=== PATIENT | male | born 1970 | race Caucasian/White ===

== ENCOUNTER 2018-01-18 05:55 | Day surgery (SDC) | payer OTHER ==
--- NOTE | 2018-01-15 14:29 | GHP ---
DATE OF ADMISSION: 01/18/2018 DATE OF SURGERY: 01/18/2018 CHIEF COMPLAINT: Umbilical hernia. HISTORY OF PRESENT ILLNESS: The patient is a 47-year-old male who presents for surgical evaluation o f an umbilical hernia. He reports that he first noticed the hernia a few months ago. He is unsure o f any precipitating event, but states that he has recently started running after dinner and this has seemed to make it worse. He reports that it typically does not bother him, but when pressed, it is s omewhat tender. He denies any GI symptoms, including diarrhea, constipation, nausea, and vomiting. He denies any hernias in his inguinal region. Of note, he has a history of second-degree type 1 AV b lock. PAST MEDICAL HISTORY: Wenckebach heart block, back pain, concussion, migraine with aura. PAST SURGICAL HISTORY: Shoulder surgery. MEDICATIONS: Fish oil, multivitamin, turmeric, vitamin D3. ALLERGIES: No known drug allergies. FAMILY HISTORY: Diabetes type 1, heart disease, thyroid disease, hypertension. SOCIAL HISTORY: He is a nonsmoker. He is a daily alcohol drinker. PHYSICAL EXAM: GENERAL: This is a well-appearing 47-year-old male in no acute distress. HEENT: Pu pils are equal and round. No scleral icterus. Head: Normocephalic, atraumatic. No gross hearing d eficit. Mucous membranes are moist. CARDIAC: Regular rate and rhythm, no clicks, murmurs, or rubs. RESPIRATORY: Clear to auscultation bilaterally. No increased work of breathing. ABDOMEN: Soft, nontender. There is a small reducible bulge in the 11 o'clock position of the umbilicus. : There is a weakness in the right groin, possibly consistent with an early inguinal hernia. SKIN: Warm an d dry. No rashes. EXTREMITIES: Moves all extremities equally. No peripheral edema. NEUROLOGIC: Awake, alert, and oriented. PSYCHIATRIC: Appropriate mood and affect. IMPRESSION/PLAN: This is a 47-year-old male with an umbilical hernia that is beginning to become bot hersome. Given his history of second-degree type 1 atrioventricular heart block, he has seen his car diologist and gained preop cardiac clearance. All risks and options of surgery have been discussed. Risks of surgery include, but are not limited to infection, bleeding, recurrence, heart attack, and . Patient understands and wishes to proceed. We will proceed with open umbilical hernia repair . /[id number]/MODL
--- NOTE | 2018-01-17 19:25 | PDANEPAE ---
ANE History of Present Illness 47 yo male with umbilical hernia ANE Past Medical History - Cardiovascular History Hx Hypertension: No Hx Arrhythmias: Yes Hx Chest Pain: No Hx Coronary Artery / Peripheral Vascular Disease: No Hx CHF / Valvular Disease: No Hx Palpitations: No Cardiovascular History Comment: AV BLOCK - Pulmonary History Hx COPD: No Hx Asthma/Reactive Airway Disease: No Hx Recent Upper Respiratory Infection: No Hx Oxygen in Use at Home: No Hx Sleep Apnea: No Sleep Apnea Screening Result - Last Documented: Negative - Neurologic History Hx Cerebrovascular Accident: No Hx Seizures: No Hx Dementia: No Neurologic History Comment: OCULAR MIGRAINES - NONE RECENT - Endocrine History Hx Diabetes: No - Renal History Hx Renal Disorders: No - Liver History Hx Hepatic Disorders: No - Neurological & Psychiatric Hx Hx Neurological and Psychiatric Disorders: No - Cancer History Hx Cancer: No - Congenital Disorder History Hx Congenital Disorders: No - GI History Hx Gastrointestinal Disorders: No - Other Health History Other Health History: NEG - Chronic Pain History Chronic Pain: No - Surgical History Prior Surgeries: SHOULDER L - REPAIR DISLOCATION. WISDOM TEETH ANE Review of Systems Review of Systems: - Exercise capacity METS (RN): 5 METS ANE Patient History - Allergies Allergies/Adverse Reactions: No Known Allergies Allergy (Unverified 07/05/13 09:40) - Home Medications Home Medications: Herbals/Supplements -Info Only 01/17/18 [Last Taken Unknown] Ibuprofen 01/17/18 [Last Taken Unknown] - Anes Hx Anes Hx: no prior problems - Smoking Hx Smoking Status: Never smoked - Family Anes Hx Family Anes Hx: none Family Hx Anesthesia Complications: NEG ANE Labs/Vital Signs - Vital Signs Height: 180.34 cm Weight: 88.451 kg ANE Physical Exam - Airway Neck exam: FROM Mallampati Score: Class 2 Mouth exam: normal dental/mouth exam - Pulmonary Pulmonary: no respiratory distress, clear to auscultation - Cardiovascular Cardiovascular: regular rate and rhythym, no murmur, rub, or gallop - ASA Status ASA Status: I ANE Anesthesia Plan Anesthesia Plan: general endotracheal anesthesia, GA w LMA
[~2018-01-18 05:55] MED LIST: LIDOCAINE 1% 2 ML INJ ID PRN; LR 1,000 ML IV ONE; ceFAZolin 2 GM/DEXTROSE 100 ML IV ONE
[2018-01-18] MEDS ORDERED: BUPIVACAINE 0.5% 30 ML SDV ONE (06:16)
[2018-01-18] MEDS ORDERED: fentaNYL 100 MCG/2 ML INJ ONE (06:52)
[2018-01-18] MEDS ORDERED: PROPOFOL 200 MG/20 ML VIAL ONE (06:52)
[2018-01-18] MEDS ORDERED: ONDANSETRON 4 MG/2 ML VIAL ONE (06:53)
[2018-01-18] MEDS ORDERED: LIDOCAINE 2% 2 ML INJ ONE (06:53)
[2018-01-18] MEDS ORDERED: KETOROLAC 30 MG/1 ML SDV ONE (06:53)
[2018-01-18] MEDS ORDERED: DEXAMETHASONE 4 MG/ML VIAL ONE (06:53)
[2018-01-18] MEDS ORDERED: MIDAZOLAM 2 MG/2 ML VIAL ONE (06:54)
--- NOTE | 2018-01-18 07:12 | PDHPUP ---
History & Physical Update H&P update statement: This history and physical update is based on an assessment of the patient which was completed after admission or registration (within 24 hours), but prior to the surgery/procedure. H&P update: H&P reviewed & patient examined, no change in patient's condition since H&P completed
[2018-01-18] MEDS ORDERED: PROMETHAZINE HCL 25 MG/ML INJ IVP PRN (07:44)
[2018-01-18] MEDS ORDERED: NALOXONE HCL 0.4 MG/ML INJ IVP PRN (07:44)
[2018-01-18] MEDS ORDERED: fentaNYL 100 MCG/2 ML INJ IVP PRN (07:44)
[2018-01-18] MEDS ORDERED: HYDROmorphONE/DILAUDID 2 MG/ML INJ IVP PRN (07:44)
[2018-01-18] MEDS ORDERED: METOCLOPRAMIDE 10 MG/2 ML VIAL IVP PRN (07:44)
--- NOTE | 2018-01-18 07:45 | POSTANESTH ---
Post Anesthetic Evaluation Cardiovascular Status: Normal, Stable Respiratory Status: Normal, Stable Level of Consciousness/Mental Status: Can Participate in Eval Pain Control: Adequate, Prn Tx Ordered Nausea/Vomiting Control: Adequate, Prn Tx Ordered Complications Possibly Related to Anesthesia: None Noted
[2018-01-18] MEDS ORDERED: SUGAMMADEX SODIUM 200 MG/2 ML VIAL IVP ONE (07:58)
--- NOTE | 2018-01-18 08:22 | POSTOPPROG ---
Post Op Note Date of Operation: 01/18/18 Surgeon: Volodymyr Osman Body Team Member: Cam Anesthesiologist: Willie Rivas Anesthesia: GET(General Endotracheal) Pre-op Diagnosis: Umbilical hernia Post-op Diagnosis: same Indication: pain Procedure: open umbilical hernia repair with mesh Inf/Abcess present in the surg proc area at time of surgery?: No Depth: Deep Incisional (Fascial) EBL: Minimal Specimen(s): Umbilical hernia sac
[2018-01-18] MEDS ORDERED: oxyCODONE IR 5 MG TAB PO PRN (09:14)
[2018-01-18 09:41] VITALS: BP 136/74
--- NOTE | 2018-01-19 04:34 | GOP ---
DATE OF OPERATION: 01/18/2018 SURGEON: Volodymyr Osman MD BOTTLE MACHINE OPERATOR: Kim Levy NP ANESTHESIOLOGIST: Dr. Stephens. PREOPERATIVE DIAGNOSIS: Symptomatic supraumbilical hernia. POSTOPERATIVE DIAGNOSIS: Symptomatic supraumbilical hernia. PROCEDURE PERFORMED: Repair of supraumbilical hernia with mesh. FINDINGS: The patient was found to have a 2 cm supraumbilical fascial defect. DESCRIPTION OF PROCEDURE: The patient was taken to the operating room where he received a satisfacto ry general endotracheal anesthesia by Dr. Sean Stephens. The patient was placed in supine position, preppe d and draped in usual sterile fashion. Incision was made above the umbilicus. Dissection was danielle d down through subcutaneous tissue. The hernia sac was dissected free from surrounding subcutaneous tissue and off the back of the umbilical skin, and then dissected down to the fascial defect. Sac wa s opened at that point. Excess sac was amputated. The contents were reduced. Hemostasis was assure d. Bard mesh circular patch was placed underneath the fascia and secured with interrupted 0 Surgilon mattress sutures. The defect was then closed transversely indirect and directly with interrupted 0 Surgilon [id number] sutures. Wound was infiltrated with 0.5% Marcaine. Hemostasis was assured. Subcu was closed with 3-0 Vicryl, skin with 4-0 Monocryl subcuticular stitch. He tolerated the pro cedure well and was taken to recovery room in good condition. No complications. /[id number]/MODL
== END 2018-01-18 09:55 | disposition home or self-care (01) ==
LOC: FSGY 05:55
PROVIDERS: ATTEND Surgery
PROC: 0WUF0JZ Supplement Abdominal Wall with Synthetic Substitute, Open Approach (ICD-10-PCS; principal; 2018-01-18 07:15)
DX: K42.9 Umbilical hernia without obstruction or gangrene (principal); I44.1 Atrioventricular block, second degree
CPT/HCPCS: C1781; J0690; J1100; J1885; J2250; J2405; J2704; J3010